=== PATIENT | female | born 1935 | race Asian ===

== ENCOUNTER 2023-04-20 14:52 | Emergency (ER) | payer MEDICARE, OTHER ==
[~2023-04-20] VITALS: Ht 157.5 cm; Wt 54.5 kg
[~2023-04-20 14:52] MED LIST: ALLO-45 PO; FENO145T PO; METO25 PO; MONT-35 PO; NIFE-78 PO; OMEG1CAP79 PO; TELM40 PO; [UNRECOGNIZED DRUG - CODE] PO
[2023-04-20 15:01] VITALS: TEMP 97.9
[2023-04-20 19:44] VITALS: BP 143/76; PULSE 87; RESP 18
== END 2023-04-20 19:46 | disposition home or self-care (01) ==
LOC: EMS 14:56
DX: S30.0XXA Contusion of lower back and pelvis, initial encounter (principal); V09.9XXA Pedestrian injured in unspecified transport accident, initial encounter; Y93.89 Activity, other specified; Y92.481 Parking lot as the place of occurrence of the external cause; Y99.8 Other external cause status
CPT/HCPCS: 72100; 73502; 99283